=== PATIENT | male | born 1970 | race Caucasian/White ===

== ENCOUNTER 2017-07-15 13:10 | Emergency (ER) | payer MEDICAID, OTHER ==
--- NOTE | 2017-07-15 13:21 | Emergency Department Record ---
History of Present Illness - General Chief Complaint: Back Pain/Injury Stated Complaint: HIP AND BACK PAIN Time Seen by Provider: 07/15/17 13:18 Source: Patient, Family Mode of Arrival: Ambulatory Limitations: No limitations - History of Present Illness Initial Comments: 46 yo male presents with back pain for 15 years and hip pain for 5 years. His pain has increased the last year. He states he has not undergone any tests or imaging. He recently got a new PCP and was interested in a full work up of his medical problems. No fevers. He has a history of prior remote injuries but nothing new. He has pain with most movements. No weakness, urinary changes or other new concerns. NO rash. No swelling. He is taking norco for the pain. MD Complaint: Back pain, Back injury, Other (hip pain) -: Year(s) Place: Home Radiation: Left leg, Right leg Severity: Severe Quality: Aching Consistency: Constant Improves With: None, Immobilization Worsens With: Movement, Sitting upright, Walking Context: Other (chronic pains) Associated Symptoms: Denies other symptoms - Related Data Home Medications Medication Instructions Recorded Confirmed Last Taken Cyclobenzaprine HCl [Flexeril] 10 mg PO BID 07/15/17 07/15/17 07/15/17 Dextroamphetamine/Amphetamine 30 mg PO BID 07/15/17 07/15/17 07/15/17 [Adderall] Hydrocodone/Acetaminophen [[place] 1 each PO ASDIR 07/15/17 07/15/17 07/15/17 10-325 Tablet] Ibuprofen 800 mg PO TID 07/15/17 07/15/17 07/15/17 Previous Rx's Medication Instructions Recorded Diazepam [Valium] 5 mg PO Q8H #15 tab 07/15/17 Ondansetron [Zofran Odt] 4 mg PO Q8H #15 tab.rapdis 07/15/17 Allergies Allergy/AdvReac Type Severity Reaction Status Date / Time No Known Drug Allergies Allergy Verified 07/15/17 13:15 Review of Systems Constitutional: Denies: Chills, Fever, Malaise, Weakness Eyes: Denies: Eye discharge ENT: Denies: Congestion, Throat pain Respiratory: Denies: Cough, Dyspnea, Hemoptysis, Stridor, Wheezes Cardiovascular: Denies: Chest pain, Palpitations, Syncope Endocrine: Denies: Fatigue Gastrointestinal: Denies: Abdominal pain, Diarrhea, Nausea, Vomiting Genitourinary: Denies: Dysuria, Frequency, Hematuria Musculoskeletal: Reports: Arthralgia, Back pain, Myalgia, Neck pain. Denies: Joint swelling Skin: Denies: Bruising, Change in color, Rash Neurological: Denies: Abnormal gait, Headache, Numbness, Paresthesias, Tingling , Tremors, Weakness Psychiatric: Denies: Anxiety Hematological/Lymphatic: Denies: Blood Clots, Easy bleeding, Easy bruising, Swollen glands Physical Exam - General General Appearance: Alert, Oriented x3, Cooperative, No acute distress Limitations: No limitations - Head Head exam: Normal inspection - Eye Eye exam: Normal appearance, PERRL. negative: Conjunctival injection, Scleral icterus - ENT ENT exam: Normal exam, Mucous membranes moist Ear exam: Normal external inspection Nasal Exam: Normal inspection Mouth exam: Normal external inspection Teeth exam: Normal inspection Throat exam: Normal inspection - Neck Neck exam: Normal inspection, Full ROM. negative: Lymphadenopathy, Tenderness - Respiratory Respiratory exam: Normal lung sounds bilaterally. negative: Respiratory distress - Cardiovascular Cardiovascular Exam: Regular rate, Normal rhythm, Normal heart sounds Peripheral Pulses: 2+: Radial (R), Radial (L) - GI/Abdominal GI/Abdominal exam: Soft. negative: Tenderness - Rectal Rectal exam: Deferred - exam: Deferred - Extremities Extremities exam: Normal inspection, Normal capillary refill, Tenderness. negative: Pedal edema - Back Back exam: Reports: CVA tenderness (R), CVA tenderness (L), Muscle spasm, Paraspinal tenderness, Tenderness, Vertebral tenderness. Denies: Rash noted Image of Body Front/Back: 1 - tender lower back, normal inspection, no step off Course - Reevaluation(s) Reevaluation #1: 07/15/17 14:46 The labs were reviewed No acute changes on the CBC or CMP 07/15/17 15:10 The XR demonstrates multilevel degenerative disk disease 07/15/17 15:28 I discussed the findings with the radiologist. the air likely is a component of the severe degenerative changes Medical Decision Making - Lab Data Result diagrams: 07/15/17 13:55 07/15/17 13:55 Disposition Disposition: Discharge Clinical Impression: Chronic back pain, Chronic hip pain Disposition: Home, Self-Care Condition: (1) Good Instructions: Chronic Back Pain (ED) Additional Instructions: Call your doctor for close follow up for ongoing care Be seen if any new symptoms or concerns Prescriptions: Diazepam [Valium] 5 mg PO Q8H #15 tab Ondansetron [Zofran Odt] 4 mg PO Q8H #15 tab.rapdis Referrals: GERMAN HAJI [MEDICAL DOCTOR] - FRANK GUZMAN [DOCTOR OF OSTEOPATH] - Forms: Patient Portal Access Time of Disposition: 15:26 Quality - Quality Measures Quality Measures: N/A - Blood Pressure Screening Does Patient Have Any of the Following: No Blood Pressure Classification: Pre-Hypertensive BP Reading Systolic Measurement: 121 Diastolic Measurement: 87 Screening for High Blood Pressure: < Pre-Hypertensive BP, F/U Documented > [ [id number]] Pre-Hypertensive Follow-up Interventions: Referral to alternative/primary care provider.
[2017-07-15] MEDS ORDERED: DIAZEPAM 5 MG TABLET PO ONE (13:44)
[2017-07-15 14:07] LABS: BASO % 0.6 % (0-6); EOS % 2.4 % (0-6); GRAN % 63.1 % (47-80); HEMATOCRIT 43.6 % (42.0-52.0); HEMOGLOBIN 14.9 gm/dl (14.0-18.0); MEAN CELL VOLUME 89.7 fl (81-97); MEAN CORPUSCULAR HEMOGLOBIN 30.7 pg (27-33); MEAN CORPUSCULAR HGB CONC 34.2 g/dl (32-36); MEAN PLATELET VOLUME 8.6 fl (7.4-10.4); MONO % 8.9 % (0-9); PLATELET COUNT 368 K/uL (130-400); RED BLOOD COUNT 4.86 M/uL (4.40-5.70); RED CELL DISTRIBUTION WIDTH 12.8 % (11.5-14.5); WHITE BLOOD COUNT W/O DIFF 8.6 K/uL (4.2-12.2)
[2017-07-15 14:17] LABS: BLOOD UREA NITROGEN 29 mg/dL (6-20); CREATININE 0.8 mg/dL (0.7-1.2); EST GLOMERULAR FILTRATION RATE > 60 mL/min
[2017-07-15 14:18] LABS: TOTAL PROTEIN 7.9 g/dL (6.6-8.7)
[2017-07-15 14:20] LABS: GLUCOSE,RANDOM 88 mg/dL (74-109)
[2017-07-15 14:22] LABS: ALT/SGPT 18 U/L (<41); AST/SGOT 18 U/L (10.0-50.0)
[2017-07-15 14:23] LABS: ALB/GLOB RATIO 1.4 (1.1-1.8); ALBUMIN 4.6 g/dL (4.0-5.0); ALKALINE PHOSPHATASE 72 U/L (40-129)
--- NOTE | 2017-07-16 08:58 | RADIOLOGY REPORT ---
EXAM: LUMBAR SPINE HISTORY: NO KNOWN INJURY, BACK PAIN FOR MANY YEARS, INCREASING. TECHNIQUE: Six views of the lumbar spine were obtained. Comparison: None. FINDINGS: There is mild narrowing of the first through the third lumbar interspaces with associated hypertrophic spurring. Multilevel degenerative disk disease seen in the visualized lower lumbar spine as well. No definite fracture of the lumbar spine identified. Mild facet joint arthropathy. IMPRESSION: MULTILEVEL DEGENERATIVE DISK DISEASE IN THE LOWER THORACIC AND LUMBAR SPINE. JOB NUMBER: [id number] MTDD
--- NOTE | 2017-07-16 09:06 | RADIOLOGY REPORT ---
EXAM: BILATERAL HIPS WITH AP PELVIS HISTORY: INCREASING BILATERAL HIP PAIN, HAS HAD IT FOR MANY YEARS. TECHNIQUE: AP view of the pelvis and AP and lateral views of both hips were obtained. Comparison: None. FINDINGS: There is advanced degenerative arthritis in both hips. There is slight flattening of the femoral heads particularly on the left with some underlying sclerosis in the femoral heads as well suggesting avascular necrosis. No definite acute fracture or dislocation of either hip identified. There does appear to be a somewhat unusual small collection of air like density overlying the lateral aspect of the superior acetabulum on the right for an area of approximately 2 cm in size. This could be in the overlapping soft tissues of the buttock and clinical correlation as to any history of recent medicine injection or other iatrogenic explanation for some air in this location. This could also be related to the advanced degenerative change. Infection could not absolutely be excluded. No definite adjacent bony destructive lesion seen. There is an oval to round approximately 1.7 cm calcific density projecting just superior to the pubic symphysis. On some images this appears to have some tiny rounded radiolucencies associated and may just be an overlying button related to patient's clothing. IMPRESSION: 1. ADVANCED DEGENERATIVE ARTHRITIS BOTH HIPS WITH SOME FLATTENING OF THE FEMORAL HEADS, LEFT GREATER THAN RIGHT, WELL SOME SCLEROSIS RAISING THE POSSIBILITY OF BILATERAL AVASCULAR NECROSIS. 2. APPARENT SMALL COLLECTION OF AIR ADJACENT TO THE LATERAL ASPECT OF THE RIGHT ACETABULUM SUPERIORLY OF UNCERTAIN SIGNIFICANCE DESCRIBED ABOVE. 3. POSSIBLE BUTTON ARTIFACT OVERLYING THE LOW PELVIS IN THE APPROXIMATE MIDLINE JUST ABOVE THE PUBIC SYMPHYSIS. JOB NUMBER: [id number] MTDD
== END 2017-07-15 16:06 | disposition home or self-care (01) ==
LOC: ER 13:10
DX: M16.0 Bilateral primary osteoarthritis of hip (principal); M47.894 Other spondylosis, thoracic region; M47.896 Other spondylosis, lumbar region
CPT/HCPCS: 72110; 73521; 80053; 85025; 99283